=== PATIENT | female | born 1950 | race Caucasian/White ===

== ENCOUNTER 2017-06-16 14:24 | Emergency (ER) | payer OTHER, MEDICARE ==
[2017-06-16] MEDS ORDERED: Sodium Chloride 0.9% 10 ML Syringe FLUSH PRN (14:29)
[2017-06-16] MEDS ORDERED: Sodium Chloride 0.9% 1,000 ML IV ONE (14:30)
--- NOTE | 2017-06-16 14:33 | EDM.PDOC ---
ED HPI GENERAL MEDICAL PROBLEM - General Chief Complaint: General Stated Complaint: ER Time Seen by Provider: 06/16/17 14:29 Source of Information: Reports: Patient, EMS Notes Reviewed, Family, RN, RN Notes Reviewed History Limitations: Reports: No Limitations - History of Present Illness INITIAL COMMENTS - FREE TEXT/NARRATIVE: Patient is brought to the emergency room at [facility] via EMS. According to the patient, about 1 hour ago after she was finished using the restroom and had a bowel movement, the patient became very diaphoretic, dizzy, and lightheaded. The patient apparently had a vasovagal response. The patient did not fall. The patient did not hit her head. The patient remembers the entire incident. Upon arrival, the EMS noted that she had a blood pressure in the 80s. The patient was started on IV fluid and brought to the emergency room. The patient states that she started on a muscle relaxant yesterday for acute right shoulder pain. The patient is not sure if the muscle relaxant is causing her symptoms. Otherwise no other concerns. The patient denies any chest pain. No shortness of breath. No other focal neurological deficit. The patient states that her abdomen feels slightly crampy. The patient denies any watery diarrhea. No constipation. Onset: Today - Related Data Allergies Allergy/AdvReac Type Severity Reaction Status Date / Time adhesive Allergy Rash Verified 05/04/15 09:28 blue dye Allergy Rash Verified 05/04/15 09:28 Home Meds: Home Meds Amiodarone [Cordarone] 200 mg PO DAILY 05/04/15 [History] Aspirin/Calcium Carbonate/Mag [Aspirin Buffered 325 mg Tab] 325 mg PO DAILY [History] Benazepril/Hydrochlorothiazide [Benazepril-HCTZ 20-12.5 MG Tablet] 1 tab PO DAILY 05/04/15 [History] Calcium Carbonate/Vitamin D3 [Calcium 600 + Vit D3 Tablet] 1 each PO DAILY 05/04 [History] Hydrocodone/Acetaminophen [Hydrocodon-Acetaminophn 10-325] 1 tab PO Q4H PRN [History] Levothyroxine [Synthroid] 100 mcg PO ACBREAKFAST 05/04/15 [History] Metoprolol Tartrate [Lopressor] 25 mg PO BID 05/04/15 [History] Multivitamin with Minerals [Multiple Vitamin] 1 tab PO DAILY 05/04/15 [History] Omeprazole [Prilosec] 20 mg PO DAILY 05/04/15 [History] Rosuvastatin [Crestor] 10 mg PO DAILY 05/04/15 [History] ED ROS GENERAL - Review of Systems Review Of Systems: See Below Constitutional: Reports: Weakness, Diaphoresis. Denies: Fever, Chills Respiratory: Denies: Shortness of Breath, Cough Cardiovascular: Denies: Chest Pain, Palpitations GI/Abdominal: Reports: Abdominal Pain. Denies: Black Stool, Bloody Stool, Nausea, Vomiting Skin: Reports: No Symptoms Neurological: Reports: Dizziness. Denies: Headache, Numbness, Paresthesia, Tingling ED EXAM, GENERAL - Physical Exam Exam: See Below Exam Limited By: No Limitations General Appearance: Alert, No Apparent Distress, Obese Respiratory/Chest: No Respiratory Distress, Lungs Clear, Normal Breath Sounds Cardiovascular: Regular Rate, Rhythm, Systolic Murmur Peripheral Pulses: 2+: Radial (L), Radial (R) GI/Abdominal: Soft, Non-Tender, Abnormal Bowel Sounds (Hyperactive) Neurological: Alert, Oriented Skin Exam: Warm, Dry, Intact, Normal Color, No Rash EKG INTERPRETATION EKG Date: 06/16/17 Time: 14:36 Rhythm: NSR Rate (Beats/Min): 70 [place]: Normal P-Wave: Present QRS: Normal ST-T: Normal QT: Normal MS/PQ Interval: 0.19 Comparison: NA - No Prior EKG EKG Interpretation Comments: 1. Sinus Rhythm 2. IVCD Course - Vital Signs Last Recorded V/S: Last Vital Signs Temp 35.7 C 06/16/17 14:47 Pulse 59 L 06/16/17 14:47 Resp 16 06/16/17 14:47 BP 100/47 L 06/16/17 14:47 Pulse Ox 98 06/16/17 14:47 - Orders/Labs/Meds Orders: Active Orders 24 hr Category Date Time Status EKG 12 Lead [EKG Documentation Completion] [RC] STAT Care 06/16/17 14:31 Active Abdomen 2V AP Flat Upright [CR] Stat Exams 06/16/17 15:16 Ordered UA W/MICROSCOPIC [URIN] Stat Lab 06/16/17 15:17 Uncollected Sodium Chloride 0.9% [Saline Flush] Med 06/16/17 14:29 Active 10 ml FLUSH ASDIRECTED PRN Peripheral IV Insertion Adult [OM.PC] Routine Oth 06/16/17 14:29 Ordered Medication Orders Sodium Chloride (Saline Flush) 10 ml FLUSH ASDIRECTED PRN PRN Reason: Keep Vein Open Labs: Laboratory Tests 06/16/17 06/16/17 Range/Units 14:45 14:45 WBC 6.7 (4.0-10.0) x10^3/uL RBC 3.79 L (4.00-5.50) x10^6/uL Hgb 13.1 (12.0-16.0) g/dL Hct 37.9 (33.0-47.0) % MCV 100.0 H (78.0-93.0) fL MCH 34.6 H (26.0-32.0) pg MCHC 34.6 (32.0-36.0) g/dL RDW Coeff of Carley 12.1 (10.0-15.0) % Plt Count 258 (130-400) x10^3/uL Neut % (Auto) 68.1 (50.0-80.0) % Lymph % (Auto) 20.6 L (25.0-50.0) % Rich % (Auto) 9.1 (2.0-11.0) % Eos % (Auto) 1.9 (0.0-4.0) % Baso % (Auto) 0.3 (0.2-1.2) % Sodium 141 (136-145) mmol/L Potassium 4.1 (3.5-5.1) mmol/L Chloride 105 (98-107) mmol/L Carbon Dioxide 29 (21-32) mmol/L BUN 24 H (7-18) mg/dL Creatinine 1.0 (0.55-1.02) mg/dL Est Cr Clr Drug Dosing 44.36 mL/min Estimated GFR (MDRD) 56 Glucose 134 H (74-106) mg/dL Calcium 8.5 (8.5-10.1) mg/dL Phosphorus 4.6 (2.6-4.7) mg/dL Magnesium 2.3 (1.8-2.4) mg/dL Creatine Kinase 30 (26-192) U/L Creatine Kinase Index TNP CK-MB (CK-2) TNP Troponin I < 0.017 (<=0.056) ng/mL Meds: Medications Generic Name Dose Route Start Last Admin Trade Name Freq PRN Reason Stop Dose Admin Sodium Chloride 10 ml 06/16/17 14:29 Saline Flush FLUSH ASDIRECTED PRN Keep Vein Open Discontinued Medications Generic Name Dose Route Start Last Admin Trade Name Freq PRN Reason Stop Dose Admin Sodium Chloride 1,000 mls @ 999 mls/hr 06/16/17 14:30 Normal Saline IV 06/16/17 15:30 ONETIME ONE Departure - Departure Time of Disposition: 16:26 Disposition: Home, Self-Care 01 Condition: Good Clinical Impression: Dehydration, Vagal reaction, Dizziness - Discharge Information Instructions: Dehydration, Adult, [id number], Dizziness Referrals: Sonja Ramos MD [Primary Care Provider] - Forms: ED Department Discharge Additional Instructions: 1. Stay well hydrated and rest 2. Move slowing with position changes 3. Blood work and xrays were normal 4. See your Primary as symptoms warrant - Problem List Review Problem List Initiated/Reviewed/Updated: Yes - My Orders Last 24 Hours: My Active Orders 06/16/17 14:29 Sodium Chloride 0.9% [Saline Flush] 10 ml FLUSH ASDIRECTED PRN Peripheral IV Insertion Adult [OM.PC] Routine 06/16/17 14:31 EKG 12 Lead [EKG Documentation Completion] [RC] STAT 06/16/17 15:16 Abdomen 2V AP Flat Upright [CR] Stat 06/16/17 15:17 UA W/MICROSCOPIC [URIN] Stat - Assessment/Plan Last 24 Hours: My Active Orders 06/16/17 14:29 Sodium Chloride 0.9% [Saline Flush] 10 ml FLUSH ASDIRECTED PRN Peripheral IV Insertion Adult [OM.PC] Routine 06/16/17 14:31 EKG 12 Lead [EKG Documentation Completion] [RC] STAT 06/16/17 15:16 Abdomen 2V AP Flat Upright [CR] Stat 06/16/17 15:17 UA W/MICROSCOPIC [URIN] Stat
[2017-06-16 15:22] LABS: CHLORIDE,CL 105 mmol/L (98-107); SODIUM,NA 141 mmol/L (136-145)
[2017-06-16 22:39] VITALS: BP 126/69
== END 2017-06-16 17:05 | disposition home or self-care (01) ==
LOC: VM.ED 14:24
DX: R55 Syncope and collapse (principal); E86.0 Dehydration; Z91.048 Other nonmedicinal substance allergy status; Z79.82 Long term (current) use of aspirin; Z79.899 Other long term (current) drug therapy; Z91.041 Radiographic dye allergy status
CPT/HCPCS: 36415; 74020; 80048; 82550; 83735; 84100; 84484; 85025; 93005; 99285

== ENCOUNTER 2019-04-28 07:23 | Day surgery (SDC) | payer MEDICARE, OTHER ==
[~2019-04-28 07:23] MED LIST: Lactated Ringers 1,000 ML IV SCH
[2019-04-28] MEDS ORDERED: fentaNYL 100 MCG/2 ML SDV ONE (09:19)
[2019-04-28] MEDS ORDERED: Propofol 200 MG/20 ML SDV ONE ×2 (09:19→09:27)
[2019-04-28 11:20] VITALS: BP 146/74; PULSE 79
--- NOTE | 2019-04-28 11:32 | OR ---
DATE OF SURGERY: 04/28/2019 REFERRING PROVIDER: Sonja Ramos MD PRE-OPERATIVE DIAGNOSES: Positive Cologuard stool card. The patient's last colonoscopy was 11 years ago and was normal. There is no known family history of colon cancer. The patient denies any symptoms. POST-OPERATIVE DIAGNOSES: Mild sigmoid diverticulosis. Otherwise normal colon mucosa. PROCEDURE: Colonoscopy. SURGEON: Lloyd Sarah M.D. ANESTHESIA: Monitored anesthesia care. BOWEL PREP: Good. Nathaly is a 68-year-old female was brought to the endoscopy suite after discussing risks and benefits of the procedure. Informed consent was obtained for conscious sedation and colonoscopy with or without biopsy and/or polypectomy. We also discussed possibility of missed lesions. Pre-procedure exam was unremarkable. IV, oxygen, and monitors were placed. The patient was placed in the left lateral decubitus position. Sedation was administered and a digital rectal exam was performed and unremarkable. Colonoscope was passed into the rectum and slowly advanced all the way to the cecum. Cecum was viewed and photographed. The colonoscope was slowly withdrawn and the mucosa was closed observed in a direct circumferential manner. The ascending colon was unremarkable. The transverse colon was unremarkable. The descending colon was unremarkable. The sigmoid colon reveals mild diverticulosis. Retroflexion was performed and rectal mucosa was unremarkable. Scope was removed. The patient tolerated the procedure well. The patient was monitored until that baseline status. Discharge instructions were reviewed and the patient was discharged in good condition. COMPLICATIONS: None. TOTAL TIME: 21 minutes. ESTIMATED BLOOD LOSS: None. RECOMMENDATIONS/FOLLOW-UP: Recommend repeat screening colonoscopy in 10 years barring any interval change in personal symptoms or family history. I would like to kindly thank Dr. Ramos for this referral. DMB: 04/28/2019 11:01:25 MODL: 04/28/2019 11:23:08 /[id number]
== END 2019-04-28 12:10 | disposition home or self-care (01) ==
LOC: VM.SDS 07:23
PROVIDERS: ATTEND Family Medicine
DX: K57.30 Diverticulosis of large intestine without perforation or abscess without bleeding (principal); I10 Essential (primary) hypertension; E03.9 Hypothyroidism, unspecified; E78.00 Pure hypercholesterolemia, unspecified; M25.561 Pain in right knee; E66.01 Morbid (severe) obesity due to excess calories; Z68.41 Body mass index [BMI] 40.0-44.9, adult; Z91.041 Radiographic dye allergy status; Z91.09 Other allergy status, other than to drugs and biological substances; Z79.899 Other long term (current) drug therapy; Z79.82 Long term (current) use of aspirin; Z85.42 Personal history of malignant neoplasm of other parts of uterus
CPT/HCPCS: 00811; 45378; J2704; J3010; J7120

== ENCOUNTER 2024-09-19 13:50 | Emergency (ER) | payer MEDICARE, OTHER ==
[2024-09-19] MEDS ORDERED: Midazolam 1 MG/ML 2 ML SDV ONE ×4 (13:56→15:38)
[2024-09-19] MEDS ORDERED: Sodium Chloride 0.9% 10 ML Syringe FLUSH PRN (13:57)
[2024-09-19] MEDS ORDERED: Midazolam 1 MG/ML 2 ML SDV IVPUSH ONE ×2 (13:59→14:15)
[2024-09-19] MEDS ORDERED: propofoL 500 MG/50 ML 50 ML IV SCH (14:00)
[2024-09-19] MEDS ORDERED: Sodium Chloride 0.9% 1,000 ML IV ONE (14:02)
[2024-09-19 14:04] LABS: BASOPHILS ABSOLUTE AUTO 0.1 x10^3/uL (0.0-0.2); BASOPHILS PERCENT AUTO 0.5 % (0.2-1.2); EOSINOPHILS ABSOLUTE AUTO 0.3 x10^3/uL (0.0-0.5); EOSINOPHILS PERCENT AUTO 2.7 % (0.0-4.0); HEMOGLOBIN 16.2 g/dL (12.0-16.0); IMMATURE GRAN ABSOLUTE AUTO 0.15 x10^3/uL (0.00-0.07); LYMPHOCYTES ABSOLUTE AUTO 3.9 x10^3/uL (1.0-4.8); LYMPHOCYTES PERCENT AUTO 38.3 % (25.0-50.0); MEAN CORPUSCULAR HGB CONC 34.5 g/dL (32.0-36.0); MEAN CORPUSCULAR VOLUME 101.5 fL (78.0-93.0); MONOCYTES ABSOLUTE AUTO 0.6 x10^3/uL (0.0-0.8); MONOCYTES PERCENT AUTO 5.7 % (2.0-11.0); NEUTROPHILS ABSOLUTE AUTO 5.3 x10^3/uL (1.8-7.7); NEUTROPHILS PERCENT AUTO 51.3 % (50.0-80.0); PLATELET COUNT,PLT 238 x10^3/uL (130-400); RED BLOOD CELL COUNT 4.63 x10^6/uL (4.00-5.50); WHITE BLOOD CELL COUNT,WBC 10.3 x10^3/uL (4.0-10.0)
[2024-09-19] MEDS ORDERED: cefTRIAXone 1 GM Vial IVPUSH ONE (14:07)
[2024-09-19 14:21] LABS: APPEARANCE,URINE CLEAR (CLEAR); BILIRUBIN,URINE NEGATIVE (NEGATIVE); COLOR,URINE YELLOW (YELLOW); GLUCOSE,URINE NEGATIVE (NEGATIVE); KETONES,URINE NEGATIVE (NEGATIVE); LEUKOCYTE ESTERASE,URINE NEGATIVE (NEGATIVE); NITRITE,URINE NEGATIVE (NEGATIVE); OCCULT BLOOD,URINE SMALL (NEGATIVE); PH,URINE 5.5 (5.0-8.0); PROTEIN,URINE >=300 mg/dL (NEGATIVE); UROBILINOGEN,URINE 0.2 EU/dL (0.2)
[2024-09-19 14:23] LABS: INR 2.2 (0.9-1.1); PROTHROMBIN TIME 21.6 SEC (8.9-11.5); PTT,PARTIAL THROMBOPLSTIN TIME 29.5 SEC (21.9-33.8)
[2024-09-19 14:25] LABS: HCO3 VENOUS,POC 21 mmol/L (22-29); O2 SATURATION VENOUS,POC 85 %; PCO2 VENOUS,POC 60 mmHg (41-51); PO2 VENOUS,POC 66 mmHg
[2024-09-19 14:29] LABS: PH VENOUS,POC 7.15 pH (7.32-7.43)
[2024-09-19 14:31] LABS: LACTIC ACID 7.7 mmol/L (0.4-2.0)
[2024-09-19 14:36] LABS: ALANINE AMINOTRANSFERASE,ALT 23 U/L (14-59); ALBUMIN 3.6 g/dL (3.4-5.0); ALKALINE PHOSPHATASE 103 U/L (46-116); ANION GAP 21.6 mmol/L (5-15); ASPARTATE AMNIOTRANSFERASE,AST 33 U/L (15-37); BILIRUBIN TOTAL 0.7 mg/dL (0.2-1.0); BLOOD UREA NITROGEN,BUN 24 mg/dL (7-18); C-REACTIVE PROTEIN 0.75 mg/dL (<=0.50); CALCIUM 9.6 mg/dL (8.5-10.1); CARBON DIOXIDE,CO2 22 mmol/L (21-32); CHLORIDE,CL 103 mmol/L (98-107); CREATININE 1.3 mg/dL (0.55-1.02); GLUCOSE RANDOM 229 mg/dL (70-99); MAGNESIUM 2.3 mg/dL (1.8-2.4); POTASSIUM,K 3.6 mmol/L (3.5-5.1); PRO B-TYPE NATRIUR PEPT,BNPPRO 804 pg/mL (<=125); PROTEIN TOTAL,TP 8.1 g/dL (6.4-8.2); SODIUM,NA 143 mmol/L (136-145)
[2024-09-19 14:37] LABS: WBC,URINE 0-5 /HPF (NOT SEEN)
[2024-09-19 14:37] LABS: ESTIMATED GFR 44 mL/min (>=60); ETHANOL BLOOD MEDICAL < 3 mg/dL (0-3)
[2024-09-19 14:38] LABS: AMORPHOUS SEDIMENT,URINE NOT SEEN; BACTERIA,URINE NOT SEEN /HPF (NOT SEEN); HYALINE CASTS,URINE FEW; MUCUS,URINE NOT SEEN /LPF (NOT SEEN); SQUAMOUS EPITHELIAL CELLS,UR OCCASIONAL /HPF (NOT SEEN)
[2024-09-19] MEDS ORDERED: Lactated Ringers 1,000 ML IV ONE (14:45)
[2024-09-19 14:55] LABS: AMPHETAMINES SCREEN, URINE NEGATIVE (NEGATIVE); BARBITURATE SCREEN,URINE NEGATIVE (NEGATIVE); BUPRENORPHINE SCREEN,URINE NEGATIVE (NEGATIVE)
[2024-09-19 14:56] LABS: BENZODIAZEPINES SCREEN,URINE NEGATIVE (NEGATIVE); COCAINE METABOLITES,URINE NEGATIVE (NEGATIVE); METHADONE SCREEN, URINE NEGATIVE (NEGATIVE); METHAMPHETAMINE SCREEN, URINE NEGATIVE (NEGATIVE); OXYCODONE SCREEN,URINE NEGATIVE (NEGATIVE); PCP SCREEN,URINE NEGATIVE (NEGATIVE); THC SCREEN,URINE 50 NG/ML NEGATIVE (NEGATIVE)
[2024-09-19] MEDS ORDERED: Norepinephrine Bit/D5W Premix 250 ML IV SCH (15:15)
[2024-09-19] MEDS: Iopamidol 755 Mg/ML 100 ML Bottle IVPUSH ONE ×2 (16:19→16:20)
== END 2024-09-19 15:55 | disposition home or self-care (01) ==
LOC: VM.ED 13:50
DX: J96.90 Respiratory failure, unspecified, unspecified whether with hypoxia or hypercapnia (principal); I10 Essential (primary) hypertension; E78.00 Pure hypercholesterolemia, unspecified; E03.9 Hypothyroidism, unspecified; E66.9 Obesity, unspecified; Z90.49 Acquired absence of other specified parts of digestive tract; Z90.710 Acquired absence of both cervix and uterus; Z90.722 Acquired absence of ovaries, bilateral; Z91.048 Other nonmedicinal substance allergy status; Z79.82 Long term (current) use of aspirin; Z79.01 Long term (current) use of anticoagulants; Z79.52 Long term (current) use of systemic steroids; Z79.890 Hormone replacement therapy; Z79.899 Other long term (current) drug therapy
CPT/HCPCS: 31500; 36415; 70450; 71045; 74174; 80053; 80305-QW; 80307; 81001; 82803; 83605; 83735; 83880; 84484; 85025; 85610; 85730; 86140; 93005; 93010; 94002; 99284; 99285-25; J0696; J2704; J3490; J7030; J7120; Q9967